=== PATIENT | female | born 1985 | race Caucasian/White ===

== ENCOUNTER 2017-05-06 20:33 | Emergency (ER) | payer OTHER ==
[2017-05-06 21:52] VITALS: BP 144/94
== END 2017-05-06 21:52 | disposition home or self-care (01) ==
LOC: ED 20:33
DX: J02.9 Acute pharyngitis, unspecified (principal); H65.92 Unspecified nonsuppurative otitis media, left ear; R03.0 Elevated blood-pressure reading, without diagnosis of hypertension

== ENCOUNTER 2018-08-07 08:25 | Emergency (ER) | payer OTHER ==
[~2018-08-07] VITALS: Ht 188 cm; Wt 146.5 kg
[2018-08-07 08:36] VITALS: BP 153/73; Ht 188 cm; Wt 146.5 kg
== END 2018-08-07 09:10 | disposition home or self-care (01) ==
LOC: ED 08:25
DX: J02.9 Acute pharyngitis, unspecified (principal)